=== PATIENT | male | born 1970 | race Caucasian/White ===

== ENCOUNTER → 2016-10-02 | Outpatient (CLI) | payer BC | END | disposition home or self-care (01) | LOC: GMAL 11:46 | PROVIDERS: ATTEND Family Medicine | DX: D51.3 Other dietary vitamin B12 deficiency anemia (principal); F32.9 Major depressive disorder, single episode, unspecified; E55.9 Vitamin D deficiency, unspecified ==

== ENCOUNTER → 2017-01-30 | Outpatient (CLI) | payer BC ==
--- NOTE | 2017-02-01 15:41 | RAD ---
EXAM DESCRIPTION: Pelvis CLINICAL HISTORY: 46 years Male, RT HIP PAIN COMPARISON: None. TECHNIQUE: AP radiograph pelvis FINDINGS: No fractures. No osseous or articular abnormalities. Soft tissues are unremarkable. IMPRESSION: Negative radiograph of the pelvis Electronically signed by: Mitul Calderon 02/01/2017 3:40 PM CDT
== END | disposition home or self-care (01) ==
LOC: RAD 07:54
PROVIDERS: ATTEND Orthopaedic Surgery
DX: M25.551 Pain in right hip (principal)

== ENCOUNTER → 2017-02-05 | Outpatient (CLI) | payer BC ==
--- NOTE | 2017-02-05 15:59 | MRI ---
Study: MRI of the Right Knee. Indication: MENISCUS TEAR Technique: Multiplanar, multi sequence MRI of the right knee was obtained without intravenous contrast. Comparison: None FINDINGS: ACL, PCL, MCL, and lateral collateral ligament complex intact. Prior partial meniscectomy with volume loss throughout the posterior horn/root and body. There is subtle free edge and undersurface fraying throughout the posterior horn and body but without recurrent fluid-filled high-grade tear defect. The body is attenuated in caliber by greater than 50%. At the posterior weightbearing medial femoral condyle there is an 11 mm AP by 5 mm transverse site of irregular grade 4 chondrosis. This is on a background of grade 2/3 chondrosis throughout the medial compartment. Lateral meniscus intact. Mild subchondral marrow edema noted at the posteromedial margin lateral tibial plateau. Areas of grade 1/2 chondrosis throughout the lateral compartment. Low-grade tendinosis quadriceps tendon insertion. Patellar tendon intact. Patella normally located. Patchy grade 2 chondrosis midline femoral trochlea. Small knee effusion. No acute fracture. IMPRESSION: Prior partial medial meniscectomy with recurrent areas of free edge and undersurface fraying as above. No recurrent high-grade tear. Tricompartmental chondrosis most pronounced at the posterior weightbearing medial femoral condyle where there is a dominant area of grade 4 chondral loss. Small knee effusion. Electronically signed by: Bhargav Steen MD 02/05/2017 3:57 PM CDT
== END | disposition home or self-care (01) ==
LOC: MRI 06:52
PROVIDERS: ATTEND Orthopaedic Surgery
DX: S83.241A Other tear of medial meniscus, current injury, right knee, initial encounter (principal); X58.XXXA Exposure to other specified factors, initial encounter

== ENCOUNTER → 2017-02-12 | Outpatient (CLI) | payer BC | END | disposition home or self-care (01) | LOC: RESP 09:37 | PROVIDERS: ATTEND Orthopaedic Surgery | DX: M17.11 Unilateral primary osteoarthritis, right knee (principal) ==

== ENCOUNTER 2017-02-25 09:26 | Day surgery (SDC) | payer BC ==
--- NOTE | 2017-02-20 18:05 | HP ---
CHIEF COMPLAINT: Right knee pain. HISTORY OF PRESENT ILLNESS: Juan David is a 46 year-old now with a history of knee pain that extends back at least 15 years. He has actually had continued arthroscopies on there but about a month and a half ago now he had a twisting injury with the acute onset of pain. He had some difficulty with range of motion and has also had what he describes as locking. He has had no radiation of pain and denies any neurologic symptoms. He has been ambulating normally but with pain on a daily basis. He has had an MRI and it does show damage to the medial meniscus. Because of his ongoing mechanical symptoms and the findings on MRI, he has elected to undergo knee arthroscopy. After discussing the risks, benefits, and alternatives to that he has given informed consent for that. PAST SURGICAL HISTORY: 1. Knee arthroscopy times 2. CURRENT MEDICATIONS: 1. Lexapro. 2. Meloxicam. 3. Metformin. 4. Januvia. 5. Hydrocodone. ALLERGIES: NO KNOWN DRUG ALLERGIES. CODE STATUS: FULL CODE. IMMUNIZATIONS: Up to date. FAMILY HISTORY: Non pertinent to today's complaints. SOCIAL HISTORY: He does not drink, use illicit drugs or smoke, but does use smokeless tobacco. REVIEW OF SYSTEMS: Negative except as indicated in the History of Present Illness. PHYSICAL EXAMINATION: VITAL SIGNS: Blood pressure 97/58, pulse 83. Height 5' 7", weight 169. MENTAL STATUS: The patient is awake, alert, and is able to give a good history and participate in the physical. The patient is oriented to person, place and time. SKIN: Normal tone and turgor. MUSCULOSKELETAL: He lacks about the last 5 degrees of extension and has no varus, valgus, anterior or posterior laxity. He does have medial joint line tenderness with some clicking. Sensation is intact. The extremity is warm and well perfused. Strength is 5/5. He does not appear to have any malalignment. He has slight antalgic gait. He does not have an effusion present today. X-RAYS: X-rays show narrowing of the medial joint space. ASSESSMENT: 1. Medial meniscus tear. 2. Arthritis. PLAN: At this point given the aforementioned reasons such as his mechanical symptoms, ongoing pain and functional limitations, we have discussed surgical intervention and the risks, benefits, and alternatives thereof. After discussing the risks, benefits, and alternatives to surgical intervention, he has given his informed consent for knee arthroscopy. #[id number] MTDD
[~2017-02-25 09:26] MED LIST: BUPIVACAINE 0.25% W/EPI 50 ML VIAL INJ ONE; LACTATED RINGERS 1,000 ML ONE; SODIUM CHL 0.9% 100ML MINI-BAG 100 ML IVPB ONE; SODIUM CHLORIDE 0.9% 100ML 100 ML IVPB ONE; ceFAZolin SODIUM 1 GM VIAL ONE
[2017-02-25] MEDS ORDERED: raNITIdine HCL INJ 25 MG/ML VIAL IV ONE (10:00)
[2017-02-25] MEDS ORDERED: PROPOFOL 200 MG/20 ML VIAL IV ONE (10:00)
[2017-02-25] MEDS ORDERED: LIDOCAINE 1% 10 ML VIAL INJ ONE (10:00)
[2017-02-25] MEDS ORDERED: DEXAMETHASONE INJ 10 MG/ML VIAL IV ONE (10:00)
[2017-02-25] MEDS ORDERED: fentaNYL CITRATE INJ 50 MCG/ML AMP ONE (10:25)
[2017-02-25] MEDS ORDERED: MIDAZOLAM INJ 2 MG/2 ML VIAL ONE (10:25)
[2017-02-25] MEDS ORDERED: VANCOMYCIN HCL INJ 1,000 MG VIAL IVPB ONE (11:25)
[2017-02-25] MEDS ORDERED: ceFAZolin SODIUM 1 GM VIAL ONE (11:25)
[2017-02-25 12:55] VITALS: BP 139/83; TEMP 97.3; O2SAT 99
--- NOTE | 2017-02-28 11:34 | OP ---
DATE OF PROCEDURE: 02/25/17 PREOPERATIVE DIAGNOSIS: 1. Knee pain. 2. Possible meniscus tear. 3. Chondromalacia. POSTOPERATIVE DIAGNOSIS: 1. Chondromalacia of the medial compartment. 2. Chondromalacia of the patellofemoral compartment. 3. Degenerative fraying of the medial meniscus. 4. Knee pain. PROCEDURE: 1. Chondroplasty. SURGEON: Juan David Pritchett M.D. SALES ENABLEMENT SPECIALIST: Scott Cabrera CST, SA-C. ANESTHESIA: General anesthesia. COMPLICATIONS: None. FINDINGS: 1. Full thickness defect generally involving the medial femoral condyle with grade 3 to 4 chondral surface changes. 2. Degenerative softening and fraying of the medial meniscus. 3. Degenerative cartilaginous changes grade 3 in the medial tibial plateau. 4. Partial tearing of the ACL. 5. Normal PCL. 6. Normal lateral femoral cartilage. 7. Normal lateral meniscus. 8. Normal lateral tibial compartment. 9. Normal lateral gutter. 10. Normal suprapatellar pouch. 11. Full thickness defect involving the trochlear notch. 12. Softening of the patellar cartilage. 13. Normal medial gutter. INDICATION FOR PROCEDURE: Mr. Kahnna has a long history of knee pain and he has also had multiple interventions. Unfortunately he has begun having mechanical symptoms. Because of that, he elected surgical intervention. After discussing the risks, benefits, and alternatives to that, he gave informed consent for that. DESCRIPTION OF PROCEDURE: The patient was brought to the Operating Room and placed in supine position. General anesthesia was induced and the patient's leg was sterilely prepped and draped. Following prepping and draping, standard anteromedial and anterolateral portals were established. Diagnostic arthroscopy was carried out with the above findings. Following diagnostic arthroscopy, attention was focused on the medial compartment. Using a 3.5 mm full radius shaver, the femoral cartilage was debrided to a stable cartilaginous base. It was thoroughly probed following debridement and it was stable at all margins. Attention was focused on the patellofemoral joint. The 3.5 mm full radius shaver was then used to debride the loose fragments extending from the trochlear groove. Following that, the area was again thoroughly probed. It was found to be stable throughout. The knee was very thoroughly irrigated and drained and following that, the wounds were closed nylon suture. Sterile dressing were placed. The patient was awakened from anesthesia and taken to recovery. POSTOPERATIVE: He is to remain on crutches. He will followup with us in 2 days. We will then discuss the findings at the time of surgery during that visit. #[id number] HEMALATHA
== END 2017-02-25 12:59 | disposition home or self-care (01) ==
LOC: AMB 09:26
PROVIDERS: ATTEND Orthopaedic Surgery
DX: M22.41 Chondromalacia patellae, right knee (principal); M17.11 Unilateral primary osteoarthritis, right knee; M23.203 Derangement of unspecified medial meniscus due to old tear or injury, right knee; M25.561 Pain in right knee; E11.9 Type 2 diabetes mellitus without complications; K21.9 Gastro-esophageal reflux disease without esophagitis; F17.220 Nicotine dependence, chewing tobacco, uncomplicated; F41.8 Other specified anxiety disorders; Z79.84 Long term (current) use of oral hypoglycemic drugs; Z79.899 Other long term (current) drug therapy
CPT/HCPCS: 01400; 29877; 36416; 82948; J0690; J1100; J2250; J2780; J3010; J3370; J3490; J7050; J7120

== ENCOUNTER → 2017-06-29 | Outpatient (CLI) | payer OTHER ==
--- NOTE | 2017-06-29 14:30 | MRI ---
EXAM DESCRIPTION: MRI right knee CLINICAL HISTORY: Right knee pain COMPARISON: None. TECHNIQUE: Multiplanar, multisequence MR images of the right knee FINDINGS: Previous partial medial meniscectomy. Intrameniscal signal within the posterior horn. Mild fraying of the inferior articular surface seen on sagittal images. Small radial defect in the free edge, coronal image 23, axial image 14. Focal blunting of meniscal substance along the posterior body related to partial meniscectomy, coronal image 21 axial image 14. Medial femorotibial chondrosis with grade 3 chondral thinning posterior weightbearing femoral condyle overlying the meniscus. There is marginal grade 4 chondrosis with a small region of marrow edema along the femoral condyle. Mild tibial chondral thinning and surface irregularity without full-thickness defect or subchondral marrow abnormality No lateral meniscal tear. No high-grade chondrosis or focal osteochondral lesion lateral femorotibial No patellar chondrosis. Femoral trochlear chondral thinning and surface irregularity involving the apex of the trochlea spanning about 2.2 x 1.4 cm, grade 2/3. No subchondral marrow edema ACL, PCL, MCL and fibular collateral ligaments are intact Biceps femoris, popliteus and iliotibial band tendons are normal. Patellar and quadriceps tendons are intact. Tendons of the posterior medial knee are intact Small joint effusion. No synovitis or intra-articular body IMPRESSION: Post meniscectomy changes posterior horn and body medial meniscus. Mild fraying of the inferior articular surface posterior horn and a small radial defect along the posterior horn. The other changes likely meniscectomy related Chondrosis along the medial femoral condyle margin with a small region of osseous edema spanning about 7 x 5 mm Trochlear chondrosis grade 2/3 Electronically signed by: Edgar Rizo MD 06/29/2017 2:29 PM [facility]
== END ==
LOC: MRI 06:30
PROVIDERS: ATTEND Family Medicine
DX: M25.561 Pain in right knee (principal); M94.8X8 Other specified disorders of cartilage, other site; Z98.890 Other specified postprocedural states

== ENCOUNTER → 2017-07-14 | Outpatient (CLI) | payer BC | LOC: GMAL 12:37 | PROVIDERS: ATTEND Family Medicine | DX: Z00.00 Encounter for general adult medical examination without abnormal findings (principal) ==

== ENCOUNTER 2018-12-05 15:39 | Emergency (ER) | payer BC, OTHER ==
[2018-12-05] MEDS ORDERED: ONDANSETRON ODT 8 MG TAB SL ONE (15:51)
[2018-12-05] MEDS ORDERED: SODIUM CHLORIDE 0.9% 1000ML 2,000 ML IVS ONE (15:51)
[2018-12-05] MEDS ORDERED: INSULIN LISPRO 100 UNITS/ML PEN SUBCU ONE (16:35)
[2018-12-05] MEDS ORDERED: INSULIN DETEMIR 100 UNITS/ML PEN SUBCU ONE (17:17)
--- NOTE | 2018-12-05 17:19 | ED.PDOC ---
History of Present Illness - General Chief Complaint: General Stated Complaint: HESS,dizziness,weakness Time Seen by Provider: 12/05/18 15:40 Source: patient Exam Limitations: no limitations - History of Present Illness Initial Comments: the patient is a 47-year-old male presenting to the emergency room secondary to feelings of fatigue, headache, generalized weakness along with some nausea for the last 24-48 hours. This followed an episode of getting too hot outside the day prior. He has not been following his blood sugars. He has not really been vomiting but he has been nauseated. No syncope. No focal neurological changes. Timing/Duration: 24 hours Severity: moderate Improving Factors: nothing Worsening Factors: nothing Associated Symptoms: headaches, loss of appetite, malaise, nausea/vomiting Allergies/Adverse Reactions: Allergies Sulfamethoxazole w/Trimethoprim [From Bactrim] Allergy (Verified 02/25/17 08:46) Home Medications: Ambulatory Orders Cyclobenzaprine HCl [Flexeril] 10 mg PO BEDTIME 10/15/13 Escitalopram [Lexapro] 10 mg PO BEDTIME 10/15/13 Meloxicam 30 mg PO BEDTIME 10/15/13 Omeprazole [Prilosec Cap] 20 mg PO DAILY 10/15/13 Trazodone HCl 150 mg PO BEDTIME 10/15/13 HYDROcodone 5MG/APAP 325MG [Golden 5/325] 1 - 2 tab PO Q6H #30 tab 10/20/13 Sitagliptin-Metformin HCl [Janumet] 1 tab PO TID 02/20/17 Insulin Glargine [Toujeo Solostar] 15 unit SC DAILY #1 inj 12/05/18 Review of Systems - Review of Systems Constitutional: States: malaise EENTM: States: no symptoms reported Respiratory: States: no symptoms reported Cardiology: States: no symptoms reported Gastrointestinal/Abdominal: States: nausea Genitourinary: States: no symptoms reported Musculoskeletal: States: other - generalized body aches Skin: States: no symptoms reported Neurological: States: headache Endocrine: States: no symptoms reported All other Systems: No Change from Baseline Past Medical History (General) - Patient Medical History Hx Seizures: No Hx Stroke: No Hx Asthma: No Hx of COPD: No Hx Cardiac Disorders: No Hx Congestive Heart Failure: No Hx Pacemaker: No Hx Hypertension: No Hx Diabetes: Yes Hx MRSA: Yes MRSA Source:: Wound - Vaccination History Hx Influenza Vaccination: Yes - Social History Hx Tobacco Use: No Hx Chewing Tobacco Use: Yes Hx Alcohol Use: No Hx Substance Use: No Hx Physical Abuse: No Hx Emotional Abuse: No Family Medical History - Family History Father Family History: Unknown Living Status: Unknown Physical Exam - Physical Exam General Appearance: Alert, Comfortable, No apparent distress Eye Exam: bilateral normal Ears, Nose, Throat: hearing grossly normal, normal ENT inspection Neck: full range of motion, supple Respiratory: lungs clear, normal breath sounds, no respiratory distress, no accessory muscle use Cardiovascular/Chest: normal peripheral pulses, regular rate, rhythm, no edema Peripheral Pulses: radial,right: 2+, radial,left: 2+, dorsalis pedis,right: 2+, dorsalis pedis,left: 2+ Gastrointestinal/Abdominal: non tender, soft Rectal Exam: deferred Back Exam: no CVA tenderness, no vertebral tenderness Extremity: normal range of motion, non-tender, normal inspection, no pedal edema, normal capillary refill Neurologic: tape sewer II-XII nml as tested, alert, normal mood/affect, oriented x 3 Skin Exam: normal color Comments: Vital Signs - 24 hr 12/05/18 12/05/18 15:46 17:13 Temperature 97.9 F Pulse Rate [ 85 79 Left Brachial] Respiratory 20 20 Rate Blood Pressure 129/90 136/94 [Left Arm] O2 Sat by Pulse 98 98 Oximetry Progress - Progress Progress: 12/05/18 17:19 the patient's a 47-year-old male presenting to emergency room with signs and symptoms of heat exhaustion combined with uncontrolled hyperglycemia with his type 2 diabetes. He did receive a couple liters of IV fluids and a couple of doses of insulin. He needs to try and follow his blood sugars closely over the coming week. I'm going to write him for some Zofran for as needed use to control any nausea or vomiting. I will also write him some toujeo to take 15 units in the morning at least until he is seen again by his primary care doctor and they can obtain better control of his blood sugars. No evidence of DKA at this time. ER warnings were given. - Results/Orders Results/Orders: Laboratory Tests 12/05/18 12/05/18 12/05/18 15:52 15:52 16:03 WBC 13.5 H RBC 5.73 Hgb 16.1 Hct 48.4 MCV 84.5 MCH 28.1 MCHC 33.2 RDW 12.5 Plt Count 250 MPV 9.0 Absolute Neuts (auto) 10.00 H Absolute Lymphs (auto) 2.10 Absolute Monos (auto) 1.10 H Absolute Eos (auto) 0.20 Absolute Basos (auto) 0.20 H Neutrophils % 74.2 Lymphocytes % 15.5 L Monocytes % 7.9 Eosinophils % 1.2 Basophils % 1.2 Sodium 131 L Potassium 3.9 Chloride 97 L Carbon Dioxide 24 Anion Gap 13.9 BUN 15 Creatinine 0.83 BUN/Creatinine Ratio 18.1 Random Glucose 376 H Serum Osmolality 278.9 Calcium 9.1 Magnesium 2.1 Total Bilirubin 0.7 AST 20 ALT 26 Alkaline Phosphatase 119 Creatine Kinase 154 CK-MB (CK-2) 3.7 CK-MB (CK-2) % Not Reportable Troponin I < 0.02 B-Natriuretic Peptide 9.3 Serum Total Protein 7.5 Albumin 4.1 Globulin 3.4 Albumin/Globulin Ratio 1.2 Urine Color Yellow Urine Appearance Clear Urine pH 6.5 Ur Specific Hasty 1.010 Urine Protein Negative Urine Glucose (UA) >=1000 H Urine Ketones Negative Urine Blood Negative Urine Nitrite Negative Urine Bilirubin Negative Urine Urobilinogen 0.2 Ur Leukocyte Esterase Negative Urine RBC 0 Urine WBC 0 Ur Epithelial Cells 0 Urine Bacteria 0 Departure - Departure Clinical Impression: Dehydration Heat exhaustion Qualifiers: Encounter type: initial encounter Qualified Code(s): T67.5XXA - Heat exhaustion, unspecified, initial encounter Hyperglycemia due to type 2 diabetes mellitus Qualifiers: Diabetes mellitus fpc insulin use: without terminal carman use Qualified Code(s): E11.65 - Type 2 diabetes mellitus with hyperglycemia Disposition: Discharge to Home or Self Care Condition: Fair Departure Forms: ED Discharge - Pt. Copy, Patient Portal Self Enrollment Instructions: Type 2 Diabetes, Heat Exhaustion and Heat Stroke (DC) Diet: diabetic diet Activity: increase activity as tolerated Referrals: Christiano Cuevas III, MD [Primary Care Provider] - 1-2 Weeks Prescriptions: Insulin Glargine [Toujeo Solostar] 15 unit SC DAILY #1 inj Home Medications: Ambulatory Orders Cyclobenzaprine HCl [Flexeril] 10 mg PO BEDTIME 10/15/13 Escitalopram [Lexapro] 10 mg PO BEDTIME 10/15/13 Meloxicam 30 mg PO BEDTIME 10/15/13 Omeprazole [Prilosec Cap] 20 mg PO DAILY 10/15/13 Trazodone HCl 150 mg PO BEDTIME 10/15/13 HYDROcodone 5MG/APAP 325MG [Golden 5/325] 1 - 2 tab PO Q6H #30 tab 10/20/13 Sitagliptin-Metformin HCl [Janumet] 1 tab PO TID 02/20/17 Insulin Glargine [Toujeo Solostar] 15 unit SC DAILY #1 inj 12/05/18 Additional Instructions: the patient's a 47-year-old male presenting to emergency room with signs and symptoms of heat exhaustion combined with uncontrolled hyperglycemia with his type 2 diabetes. He did receive a couple liters of IV fluids and a couple of doses of insulin. He needs to try and follow his blood sugars closely over the coming week. I'm going to write him for some Zofran for as needed use to control any nausea or vomiting. I will also write him some toujeo to take 15 units in the morning at least until he is seen again by his primary care doctor and they can obtain better control of his blood sugars. No evidence of DKA at this time. ER warnings were given.
[2018-12-05 18:14] VITALS: BP 113/83; TEMP 97.4; O2SAT 100
== END 2018-12-05 18:14 | disposition home or self-care (01) ==
LOC: ER 15:39
DX: T67.5XXA Heat exhaustion, unspecified, initial encounter (principal); E86.0 Dehydration; E11.65 Type 2 diabetes mellitus with hyperglycemia; Z87.891 Personal history of nicotine dependence; Z79.4 Long term (current) use of insulin; Z79.899 Other long term (current) drug therapy; Z88.2 Allergy status to sulfonamides
CPT/HCPCS: 36415; 80053; 81001; 82550; 82553; 83735; 83880; 84484; 85025; J1815; J7030

== ENCOUNTER → 2020-01-31 | Outpatient (CLI) | payer BC | LOC: GMAL 10:45 | PROVIDERS: ATTEND Family Medicine | DX: Z00.01 Encounter for general adult medical examination with abnormal findings (principal); E11.9 Type 2 diabetes mellitus without complications ==